=== PATIENT | female | born 1970 | race Caucasian/White ===

== ENCOUNTER → 2017-02-05 | Outpatient (CLI) | payer MEDICARE, OTHER ==
[2017-02-05 07:47] LABS: ALT 30 U/L (9-52); AST 19 U/L (14-36); Alkaline Phosphatase 90 U/L (38-126); Anion Gap 9 mmol/L; Blood Urea Nitrogen 12 mg/dL (7-17); Calcium 9.4 mg/dL (8.4-10.2); Carbon Dioxide 32 mmol/L (22-30); Chloride 100 mmol/L (98-107); Cholesterol 227 mg/dL (<200); Glucose 290 mg/dL (74-99); HDL Cholesterol 35 mg/dL (40-60); Non-African American GFR(MDRD) >60 (>60 ml/min/1.73 sqM); Potassium 4.4 mmol/L (3.5-5.1); Sodium 141 mmol/L (137-145); Total Bilirubin 0.7 mg/dL (0.2-1.3); Total Protein 6.9 g/dL (6.3-8.2); Triglycerides 509 mg/dL (<150)
== END | disposition home or self-care (01) ==
LOC: LABWHC1 06:54
PROVIDERS: ATTEND Internal Medicine Endocrinology, Diabetes & Metabolism
DX: E11.65 Type 2 diabetes mellitus with hyperglycemia (principal)
CPT/HCPCS: 36415; 80053; 80061

== ENCOUNTER → 2017-02-05 | Outpatient (CLI) | payer MEDICARE, OTHER ==
--- NOTE | 2017-02-05 08:02 | MR ---
EXAMINATION TYPE: MR lumbar spine wo con DATE OF EXAM: 02/05/2017 7:57 AM COMPARISON: NONE HISTORY: back pain TECHNIQUE: Multiplanar, multisequence images of the lumbar spine were acquired. L1-L2: Normal disc appearance without desiccation. No herniation, protrusion or disc bulging. No ca nal stenosis is present. Foramina are patent bilaterally. L2-L3: Normal disc appearance without desiccation. No herniation, protrusion or disc bulging. No ca nal stenosis is present. Foramina are patent bilaterally. L3-L4: Normal disc appearance without desiccation. No herniation, protrusion or disc bulging. No ca nal stenosis is present. Foramina are patent bilaterally. L4-L5: Moderate to severe disc desiccation identified. Posterocentral and slightly to the right subli gamentous disc herniation effaces the ventral thecal sac. No evidence for lateral recess stenosis or central stenosis. Neural foramina are patent bilaterally. L5-S1: Normal disc appearance without desiccation. No herniation, protrusion or disc bulging. No ca nal stenosis is present. Foramina are patent bilaterally. Lumbar segments are intact. No paraspinal masses are identified. Conus medullaris has a normal appe arance. IMPRESSION: Degenerative disc disease primarily at L4-5 with mild subligamentous disc herniation is noted.
== END | disposition home or self-care (01) ==
LOC: RADMRIMAIN 07:16
PROVIDERS: ATTEND Family Medicine
DX: M51.26 Other intervertebral disc displacement, lumbar region (principal); M51.36 Other intervertebral disc degeneration, lumbar region
CPT/HCPCS: 72148

== ENCOUNTER → 2017-12-08 | Outpatient (CLI) | payer MEDICARE, OTHER ==
--- NOTE | 2017-12-08 14:21 | CT ---
EXAMINATION TYPE: CT abdomen pelvis wo con DATE OF EXAM: 12/08/2017 COMPARISON: NONE INDICATION: Lt sided abd pain, history of uterine CA DLP: 1279.1 mGycm, Automated exposure control for dose reduction was used. CONTRAST: 0 mL of Omnipaque 300. Study performed with Oral Contrast TECHNIQUE: Axial images were obtained from above the diaphragm to the pubic rami in the axial plane a t 5 mm thick sections. Reconstructed images are reviewed on the computer in the coronal plane. FINDINGS: Limited CT sections are obtained the lung bases. The lung bases are clear. CT ABDOMEN: Liver: There is mild fatty infiltration to the liver. No discrete masses or cysts are evident. Spleen: Normal Pancreas: Normal Adrenal glands: The adrenal glands are normal. Gallbladder: Normal Kidneys: No masses are evident. No hydronephrosis is present. No cysts are present. No renal stone s are identified. Aorta: Minimal vascular calcification is within the aorta. Inferior vena cava: Normal. CT PELVIS: Loops of bowel within the abdomen and pelvis are normal. There are loops of bowel which are incom pletely distended or lack oral contrast limiting their evaluation. Appendix: Not identified Urinary bladder: Decompressed with limited evaluation Genitourinary structures: Uterus and ovaries are not identified. No free fluid is within the pelvis. Osseous structures: No suspicious lytic or sclerotic lesions. IMPRESSIONS: 1. No suspicious acute changes CT abdomen pelvis. 2. No suspicious changes for metastatic disease. 3. Mild fatty infiltration liver
== END | disposition home or self-care (01) ==
LOC: RADCTMAIN 11:21
PROVIDERS: ATTEND Family Medicine
DX: K76.0 Fatty (change of) liver, not elsewhere classified (principal); R10.9 Unspecified abdominal pain; Z85.42 Personal history of malignant neoplasm of other parts of uterus
CPT/HCPCS: 74176

== ENCOUNTER → 2018-09-27 | Outpatient (CLI) | payer MEDICARE, OTHER ==
--- NOTE | 2018-09-27 15:04 | NM ---
EXAMINATION TYPE: NM hepatobiliary w EF DATE OF EXAM: 09/27/2018 COMPARISON: NONE HISTORY: Pain TECHNIQUE: After the intravenous administration of 4.9 mCi Tc 99m Mebrofenin hepatobiliary scintigrap hy is performed. Immediate images post injection. FINDINGS: There is satisfactory initial accumulation of tracer by the liver. The gallbladder is visualized wit hin 10 minutes. The small bowel activity is noted within 25 minutes. At one hour 8 ounces of oral e nsure plus is given to mimic CCK and gallbladder ejection fraction is calculated at 62 %, in the norm al range. Therefore there is no scintigraphic evidence of cystic or common bile duct obstruction to suggest acute cholecystitis or gallbladder dyskinesia. IMPRESSION: Exam is within normal limits.
== END | disposition home or self-care (01) ==
LOC: RADNMMAIN 12:34
PROVIDERS: ATTEND Family Medicine
DX: K80.20 Calculus of gallbladder without cholecystitis without obstruction (principal)
CPT/HCPCS: 78226; A9537

== ENCOUNTER → 2019-01-25 | Outpatient (CLI) | payer MEDICARE, OTHER ==
--- NOTE | 2019-01-25 10:18 | XR ---
EXAMINATION TYPE: XR lumbosacral spine min 4V DATE OF EXAM: 01/25/2019 CLINICAL HISTORY: Low back pain. TECHNIQUE: Frontal, lateral, and oblique images of the lumbar spine are obtained. COMPARISON: CT abdomen and pelvis December 08, 2017. MRI lumbar spine February 05, 2017. FINDINGS: There are 5 lumbar type vertebral bodies redemonstrated. The lumbar spine shows satisfact ory alignment without evidence of acute fracture or dislocation. There is persistent mild to moderate disc space narrowing with mild to moderate anterior spurring L4-L5 level otherwise vertebral body he ights and disk space heights are within normal limits. The oblique images appear within normal limi ts. Mild anterior spurring L3 level is also present. The overlying soft tissue appears unremarkable. IMPRESSION: Degenerative changes L4-L5 level redemonstrated, disc herniation noted at this level [facility].
== END | disposition home or self-care (01) ==
LOC: RADXRMAIN 09:20
PROVIDERS: ATTEND Family Medicine
DX: M51.26 Other intervertebral disc displacement, lumbar region (principal); M47.816 Spondylosis without myelopathy or radiculopathy, lumbar region
CPT/HCPCS: 72110

== ENCOUNTER → 2019-02-03 | Outpatient (CLI) | payer MEDICARE, OTHER ==
--- NOTE | 2019-02-03 12:54 | CT ---
EXAMINATION TYPE: CT brain wo con DATE OF EXAM: 02/03/2019 COMPARISON: None HISTORY: lack of coordination, history of uterine CA CT DLP: 892.1 mGycm Automated exposure control for dose reduction was used. FINDINGS: Ventricular system is midline. There is no evidence of acute hemorrhage or mass effect. There is daron t low-attenuation the periventricular region which is nonspecific. No definite minutes midline shift or mass effect. Calvarium intact. IMPRESSION: NO DEFINITE MASS EFFECT OR MIDLINE SHIFT. THERE IS VERY FAINT MINIMAL PERIVENTRICULAR WHITE MATTER LO W-ATTENUATION WHICH IS NONSPECIFIC BUT MOST LIKELY THE BASIS OF REMOTE MICROVASCULAR ISCHEMIA. CORREL ATE WITH MRI CLINICALLY WARRANTED.
== END | disposition home or self-care (01) ==
LOC: RADCTMAIN 11:23
PROVIDERS: ATTEND Family Medicine
DX: R90.89 Other abnormal findings on diagnostic imaging of central nervous system (principal); R27.9 Unspecified lack of coordination
CPT/HCPCS: 70450

== ENCOUNTER → 2019-02-12 | Outpatient (CLI) | payer MEDICARE, OTHER ==
--- NOTE | 2019-02-12 15:50 | MR ---
EXAMINATION TYPE: MR brain wo/w con DATE OF EXAM: 02/12/2019 COMPARISON: HISTORY: Blurred vision, loss of balance TECHNIQUE: Multiplanar, multisequence images of the brain and brainstem is performed without and with IV contras t, utilizing 10 mL intravenous Gadavist . FINDINGS: Ventricles have normal size. There is no mass effect nor midline shift. There is no sign of intracran ial hemorrhage. There is no evidence of cortical infarct. Corpus callosum appears normal. Sella turci ca appears normal. Cuello-white matter structures have fairly normal signal pattern. There is no eviden ce of cerebral edema. There is mild mucosal thickening in the maxillary sinuses. Contrast images show no pathologic enhancement. There is normal enhancement of the venous sinuses. IMPRESSION: Negative MR scan of the brain. Mucous retention cysts in the maxillary sinuses.
== END ==
LOC: RADMRIMAIN 12:07
PROVIDERS: ATTEND Family Medicine
DX: R26.89 Other abnormalities of gait and mobility (principal); H53.8 Other visual disturbances; E11.65 Type 2 diabetes mellitus with hyperglycemia
CPT/HCPCS: 82565; 70553; 36415; A9585

== ENCOUNTER 2020-03-12 18:06 | Inpatient (IN) | payer MEDICARE, OTHER ==
[2020-03-12] MEDS ORDERED: AMPICILLIN-SULBACTAM 3 GM in SODIUM CHLORIDE 0.9% 100 ML IVPB STA (19:22)
--- NOTE | 2020-03-12 19:32 | ED ---
Skin/Abscess/FB HPI - General Chief complaint: Skin/Abscess/Foreign Body Stated complaint: Sent by pcp Time Seen by Provider: 03/12/20 18:46 Source: patient, family Mode of arrival: ambulatory Limitations: no limitations - History of Present Illness Initial comments: 50-year-old female patient presents to the emergency department today for evaluation of a wound to the left heel. Patient states a couple of weeks ago she was peeling some dried skin from her heel when she created a wound. States that the wound has deepened, a foul odor and drainage devloped. Patient has been on Cipro for the last two weeks without improvement. States her physician did a culture and it was negative for MRSA, but was positive for staph. Patient denies any significant pain. Denies fever or chills. She does report some neuropathy in the feet. Denies history of similar wound. Patient denies any recent rash, cough, shortness of breath, chest pain, abdominal pain, nausea, vomiting, diarrhea, constipation, back pain, numbness, tingling, dizziness, weakness, hematuria, dysuria, urinary urgency, urinary frequency, headache, visual changes, or any other complaints. - Related Data Home Medications Medication Instructions Recorded Confirmed ALPRAZolam [Xanax] 2 mg PO TID PRN 01/24/16 02/21/16 Betamethasone Dipropionate 1 applic TOPICAL BID PRN 01/24/16 02/21/16 [Diprolene 0.05% Lotion] Insulin Aspart [NovoLOG Flexpen] 0 units SQ AC-TID 01/24/16 02/21/16 Insulin Aspart [NovoLOG Flexpen] 30 units SQ AC-TID 01/24/16 02/21/16 Previous Rx's Medication Instructions Recorded HYDROcodone/APAP 7.5-325MG [[place] 1 each PO Q4H PRN #60 tab 02/21/16 7.5-325] Insulin Glargine [Lantus] 60 unit SQ HS #1 vial 02/22/16 Clindamycin HCl 300 mg PO Q6HR #40 cap 05/25/19 Allergies Allergy/AdvReac Type Severity Reaction Status Date / Time acetaminophen [From Vicodin] Allergy Nausea & Verified 05/25/19 15:18 Vomiting hydrocodone bitartrate Allergy Nausea & Verified 05/25/19 15:18 [From Vicodin] Vomiting sulfamethoxazole Allergy Rash/Hives Verified 03/12/20 18:38 [From Bactrim] trimethoprim [From Bactrim] Allergy Rash/Hives Verified 03/12/20 18:38 Review of Systems ROS Statement: Those systems with pertinent positive or pertinent negative responses have been documented in the HPI. ROS Other: All systems not noted in ROS Statement are negative. Past Medical History Past Medical History: Cancer, Diabetes Mellitus, GERD/Reflux, GI Bleed, Hyperlipidemia Additional Past Medical History / Comment(s): Uterine cancer- "they tell me I still have a little cancer in my left lymph node"; "spots of MRSA" "will come anywhere...dr prescribes bactrim, will make sure it drains and if not he will drain it but it normally drains by itself"-last time for MRSA was fall 2014 per pt, lower GI bleed, IDDM, diabetic peripheral neuropathy bilateral feet History of Any Multi-Drug Resistant Organisms: MRSA Date of last positivie culture/infection: fall 2014 MDRO Source:: "spots of MRSA" Past Surgical History: Appendectomy, Hysterectomy, Orthopedic Surgery Additional Past Surgical History / Comment(s): 02/21/16 Laparoscopic Olivia Fundoplasty, 01/2016 EGD with bx/colonoscopy, 2008 left side MRSA drained & packed, left elbow sx Past Anesthesia/Blood Transfusion Reactions: No Reported Reaction, Motion Sickness Past Psychological History: Anxiety Smoking Status: Never smoker Past Alcohol Use History: None Reported Past Drug Use History: None Reported - Past Family History Mother Family Medical History: Cancer, Diabetes Mellitus (Mother 70-year-old has a history of diabetes), Hypertension Additional Family Medical History / Comment(s): [place]:skin Father Family Medical History: Cancer, Hypertension, Myocardial Infarction ([place]) (Father at age of 51 from the thoracic aortic aneurysm.) Additional Family Medical History / Comment(s): "aneurysm on his heart"; CA: skin Daughter(s) Family Medical History: No Reported History (2 daughters no major medical problems) Son(s) Family Medical History: No Reported History (2 sons no major medical problems) General Exam Limitations: no limitations General appearance: alert, in no apparent distress, other (This is a well- developed, well-nourished adult female patient in no acute distress. Vital signs upon presentation are temperature 98.1F, pulse 80, respirations 18, blood pressure 172/85, pulse ox 97% on room air.) Eye exam: Present: normal appearance, PERRL, EOMI. Absent: scleral icterus, conjunctival injection, periorbital swelling ENT exam: Present: normal exam, normal oropharynx, mucous membranes moist Respiratory exam: Present: normal lung sounds bilaterally. Absent: respiratory distress, wheezes, rales, rhonchi, stridor Cardiovascular Exam: Present: regular rate, normal rhythm, normal heart sounds. Absent: systolic murmur, diastolic murmur, rubs, gallop, clicks GI/Abdominal exam: Present: soft, normal bowel sounds. Absent: distended, tenderness, guarding, rebound, rigid Extremities exam: Present: full ROM, normal capillary refill, other (Left heel wound, foul odor noted, yellow drainage). Absent: normal inspection, tenderness, pedal edema, joint swelling, calf tenderness Neurological exam: Present: alert, oriented X3, CN II-XII intact Psychiatric exam: Present: normal affect, normal mood Skin exam: Present: warm, dry, intact, normal color. Absent: rash Course Vital Signs 03/12/20 03/12/20 18:34 20:16 Temperature 98.1 F Pulse Rate 80 70 Respiratory 18 18 Rate Blood Pressure 172/85 194/86 O2 Sat by Pulse 97 98 Oximetry Medical Decision Making - Medical Decision Making 50-year-old female patient with past history significant for type 2 diabetes pre sents to the emergency department today for evaluation of a wound to the left heel. Patient has been on cipro for the last two weeks without much improvement. There is yellow drainage and a foul odor from the wound. - Lab Data Result diagrams: 03/12/20 19:29 03/12/20 19:29 Lab Results 03/12/20 03/12/20 Range/Units 19:29 19:29 WBC 5.4 (3.8-10.6) k/uL RBC 5.00 (3.80-5.40) m/uL Hgb 14.4 (11.4-16.0) gm/dL Hct 44.0 (34.0-46.0) % MCV 88.0 (80.0-100.0) fL MCH 28.9 (25.0-35.0) pg MCHC 32.8 (31.0-37.0) g/dL RDW 12.7 (11.5-15.5) % Plt Count 254 (150-450) k/uL Neutrophils % 63 % Lymphocytes % 29 % Monocytes % 4 % Eosinophils % 3 % Basophils % 1 % Neutrophils # 3.4 (1.3-7.7) k/uL Lymphocytes # 1.6 (1.0-4.8) k/uL Monocytes # 0.2 (0-1.0) k/uL Eosinophils # 0.1 (0-0.7) k/uL Basophils # 0.0 (0-0.2) k/uL Sodium 134 L (137-145) mmol/L Potassium 4.3 (3.5-5.1) mmol/L Chloride 96 L (98-107) mmol/L Carbon Dioxide 29 (22-30) mmol/L Anion Gap 9 mmol/L BUN 17 (7-17) mg/dL Creatinine 0.94 (0.52-1.04) mg/dL Est GFR (CKD-EPI)AfAm 81 (>60 ml/min/1.73 sqM) Est GFR (CKD-EPI)NonAf 71 (>60 ml/min/1.73 sqM) Glucose 492 H (74-99) mg/dL Calcium 9.1 (8.4-10.2) mg/dL Total Bilirubin 0.3 (0.2-1.3) mg/dL AST 20 (14-36) U/L ALT 15 (4-34) U/L Alkaline Phosphatase 109 (38-126) U/L Total Protein 7.1 (6.3-8.2) g/dL Albumin 3.8 (3.5-5.0) g/dL - Radiology Data Radiology results: report reviewed, image reviewed X-ray of the left foot is obtained. Report is reviewed in its entirety. Impr ession by Dr. Younger shows fracture at the base of the proximal fifth phalanx. Soft tissue edema with no destructive osseous changes involving the heel suggest osteomyelitis. Soft tissue ulceration is suspected along the plantar surface adjacent to the calcaneus. Correlate for cellulitis. Disposition Clinical Impression: Ulcer of left heel, Hyperglycemia Disposition: ADMITTED IP TO THIS [facility] Condition: Serious Referrals: Tevin Mora DO [Primary Care Provider] - 1-2 days Decision to Admit Reason: Admit from EC Decision Date: 03/12/20 Decision Time: 20:30
[2020-03-12 19:43] LABS: Basophils % (A) 1 %; Eosinophils # (A) 0.1 k/uL (0-0.7); Eosinophils % (A) 3 %; HGB 14.4 gm/dL (11.4-16.0); Lymphocytes # (A) 1.6 k/uL (1.0-4.8); Lymphocytes % (A) 29 %; MCH 28.9 pg (25.0-35.0); MCHC 32.8 g/dL (31.0-37.0); Mean Platelet Volume 6.6; Monocytes # (A) 0.2 k/uL (0-1.0); Monocytes % (A) 4 %; Neutrophils # (A) 3.4 k/uL (1.3-7.7); Neutrophils % (A) 63 %; Platelet Count 254 k/uL (150-450); RDW 12.7 % (11.5-15.5); WBC 5.4 k/uL (3.8-10.6)
--- NOTE | 2020-03-12 19:54 | XR ---
EXAMINATION TYPE: XR foot complete LT DATE OF EXAM: 03/12/2020 COMPARISON: NONE HISTORY: Pain TECHNIQUE: Three views are submitted. FINDINGS: There is a fracture at the base of the proximal phalanx fifth digit. Arthropathy of the MTP joints no magdiel. Calcaneal spur noted. IMPRESSION: 1. Fracture base proximal phalanx fifth digit. 2. Soft tissue edema with no destructive osseous changes involving the heel to suggest osteomyelitis. Soft tissue ulceration is suspected along the plantar surface adjacent to the calcaneus. Correlate f or cellulitis.
[2020-03-12 19:55] LABS: Albumin 3.8 g/dL (3.5-5.0); Calcium 9.1 mg/dL (8.4-10.2); Potassium 4.3 mmol/L (3.5-5.1); Total Bilirubin 0.3 mg/dL (0.2-1.3); Total Protein 7.1 g/dL (6.3-8.2)
[2020-03-12] MEDS ORDERED: SODIUM CHLORIDE 0.9% 1,000 ML IV ONE (20:20)
[2020-03-12] MEDS ORDERED: SODIUM CHLORIDE 0.9% 500 ML 500 ML IV ONE (20:20)
[2020-03-12] MEDS ORDERED: INSULIN ASPART (NovoLOG) 100 UNIT/ML VIAL SQ STA ×2 (20:22→20:26)
[2020-03-12] MEDS ORDERED: NALOXONE 0.4 MG/ML 1 ML VIAL IV PRN (20:23)
[2020-03-12] MEDS ORDERED: hydrALAZINE HCL 20 MG/ML 1 ML VIAL IVP STA (21:13)
[2020-03-12 22:37] LABS: Glucose,Whole Blood 284 mg/dL (75-99)
[2020-03-12] MEDS: INSULIN ASPART (NovoLOG) 100 UNIT/ML VIAL SQ SCH (23:04)
[2020-03-12] MEDS: glipiZIDE 10 MG TAB PO SCH (23:05)
[2020-03-12] MEDS: INSULIN DETEMIR (LEVEMIR) 100 UNIT/ML SYR SQ SCH (23:06)
[2020-03-12] MEDS: HEPARIN SODIUM,PORCINE 5,000 UNIT/ML 1 ML VIAL SQ SCH (23:06)
[2020-03-13] MEDS: AMPICILLIN-SULBACTAM 3 GM in SODIUM CHLORIDE 0.9% 100 ML IVPB SCH ×5 (01:27→23:19)
[2020-03-13 07:34] LABS: Glucose,Whole Blood 269 mg/dL (75-99)
[2020-03-13] MEDS: INSULIN ASPART (NovoLOG) 100 UNIT/ML VIAL SQ SCH ×6 (08:45→21:36)
[2020-03-13] MEDS: LISINOPRIL 10 MG TAB PO SCH (08:45)
[2020-03-13] MEDS: glipiZIDE 10 MG TAB PO SCH ×3 (08:45→21:37)
[2020-03-13] MEDS: HEPARIN SODIUM,PORCINE 5,000 UNIT/ML 1 ML VIAL SQ SCH ×2 (08:45→21:36)
[2020-03-13] MEDS: FAMOTIDINE 20 MG TAB PO SCH (08:45)
[2020-03-13 11:51] VITALS: BMI 41.5
--- NOTE | 2020-03-13 12:06 | P.CONS ---
History of Present Illness - Reason for Consult Consult date: 03/13/20 Wound care - History of Present Illness This is a 50-year-old pleasant female being seen on [address] by the wound care center. Patient is being seen for diabetic foot ulcer. Patient states that the ulceration started approximately one month ago. She was seen by her primary care physician and treated with Cipro for a positive staph infection. Patient continues to have increased in size and depth purulent drainage and foul odor from the site. Patient is diabetic she states that her blood sugars have been under control. She does have peripheral diabetic neuropathy. Patient states the area started out of just peeling skin and a blister. Patient's past medical history significant for uterine cancer, diabetes mellitus type 2, diabetic peripheral neuropathy bilateral feet, acid reflux, GI bleed, hyperlipid emia. Patient did have MRSA in the past and abdominal wound. Review of Systems Review Of Systems: Constitutional: No fever, no chills, no night sweats. No weight change. No weakness, fatigue or lethargy. No daytime sleepiness. Integumentary:reports wounds, no lesions. No rash or pruritus. No unusual bruising. No change in hair or nails. Neurological: Positive neuropathy, positive numbness and tingling toe bilateral feet. Past Medical History Past Medical History: Cancer, Diabetes Mellitus, GERD/Reflux, GI Bleed, Hyperlipidemia Additional Past Medical History / Comment(s): Uterine cancer- "they tell me I still have a little cancer in my left lymph node"; "spots of MRSA" "will come anywhere...dr prescribes bactrim, will make sure it drains and if not he will drain it but it normally drains by itself"-last time for MRSA was fall 2014 per pt, lower GI bleed, IDDM, diabetic peripheral neuropathy bilateral feet History of Any Multi-Drug Resistant Organisms: MRSA Year Discovered:: fall 2014 MDRO Source:: "spots of MRSA" Past Surgical History: Appendectomy, Hysterectomy, Orthopedic Surgery Additional Past Surgical History / Comment(s): 02/21/16 Laparoscopic Olivia Fundoplasty, 01/2016 EGD with bx/colonoscopy, 2008 left side MRSA drained & packed, left elbow sx Past Anesthesia/Blood Transfusion Reactions: No Reported Reaction, Motion Sickness Past Psychological History: Anxiety Additional Psychological History / Comment(s): Pt resides with her 2 adult children. She uses a cane at times. She drives. Smoking Status: Never smoker Past Alcohol Use History: None Reported Past Drug Use History: None Reported - Past Family History Mother Family Medical History: Cancer, Diabetes Mellitus, Hypertension Additional Family Medical History / Comment(s): CA:skin Father Family Medical History: Cancer, Hypertension, Myocardial Infarction ([place]) Additional Family Medical History / Comment(s): "aneurysm on his heart"; CA: skin Daughter(s) Family Medical History: No Reported History Son(s) Family Medical History: No Reported History Medications and Allergies Home Medications Medication Instructions Recorded Confirmed Type Insulin Glargine [Lantus] 60 unit SQ HS #1 vial 02/22/16 03/12/20 Rx glipiZIDE [Glucotrol] 10 mg PO TID 03/12/20 03/12/20 History Allergies Allergy/AdvReac Type Severity Reaction Status Date / Time hydrocodone bitartrate Allergy Nausea & Verified 03/12/20 20:49 [From Vicodin] Vomiting sulfamethoxazole Allergy Rash/Hives Verified 03/12/20 20:49 [From Bactrim] trimethoprim [From Bactrim] Allergy Rash/Hives Verified 03/12/20 20:49 Physical Exam Vitals: Vital Signs Temp Pulse Pulse Resp BP BP Pulse Ox 03/13/20 06:00 97.4 F L 73 18 187/91 97 03/12/20 21:35 98.4 F 72 18 172/90 98 03/12/20 21:00 97.9 F 88 18 157/100 96 03/12/20 20:16 70 18 194/86 98 03/12/20 18:34 98.1 F 80 18 172/85 97 Intake and Output 03/12/20 03/13/20 03/13/20 22:59 06:59 14:59 Intake Total 300 450 Balance 300 450 Intake: Oral 300 450 Other: # Voids 0 2 Weight 113.398 kg 113.398 kg Physical exam: General Appearance: Alert, cooperative, no distress, appears stated age. Skin: Left calcaneus ulceration with muscle involvement without necrosis approximately 1.5 x 1 x 2 cm unable to palpate bone at this time however suspicious that there is bone involvement. Significant amount of necrotic tissue present Slough fibrin and exudate. Odiferous. Wound edges are attached however rolled callus noted to the wound. Significant amount of purulent drainage all other Skin color, texture, tugor normal, no rashes or lesions. Neurologic: Alert oriented x3, decreased sensation to bilateral feet Results CBC & Chem 7: 03/12/20 19:29 03/12/20 19:29 Labs: Abnormal Lab Results - Last 24 Hours (Table) 03/12/20 03/12/20 03/13/20 Range/Units 19:29 22:35 07:31 Sodium 134 L (137-145) mmol/L Chloride 96 L (98-107) mmol/L Glucose 492 H (74-99) mg/dL POC Glucose (mg/dL) 284 H 269 H (75-99) mg/dL Microbiology - Last 24 Hours (Table) 03/12/20 20:23 Gram Stain - Preliminary Foot - Left Wound Culture - Preliminary Assessment and Plan (1) Diabetic ulcer of left foot with muscle involvement without evidence of necrosis Current Visit: Yes Status: Acute Code(s): E11.621 - TYPE 2 DIABETES MELLITUS WITH FOOT ULCER; L97.525 - NON-PRS [facility] OTH PRT L FOOT WITH MSL INVL W/O EVD OF NECR SNOMED Code(s): 393134375 Plan: Patient is set up for bone scan to rule out osteomyelitis. Patient has a diabetic foot ulcer Henderson grade 3. Suspect possible bone involvement unable to palpate at this time. Utilize absorptive silver, saline moistened gauze, dry gauze and rolled gauze and secure with paper tape. Change Thursday. Patient will benefit from wound debridement which can be done in the outpatient setting in the wound care clinic. Patient may also be a candidate for hyperbaric therapy. Discussed with patient follow-up in the wound care center which patient is agreeable at this time. Nonweightbearing to left calcaneus. Thank you kindly for the consultation. Any questions please contact the wound care center. DNP note has been reviewed and discussed with Dr. Estrada and the impression and plan of care has been directed as dictated.
[2020-03-13 12:12] LABS: Glucose,Whole Blood 278 mg/dL (75-99)
--- NOTE | 2020-03-13 12:37 | P.HPIM ---
History of Present Illness H&P Date: 03/13/20 Chief Complaint: Left heel wound This is a 50-year-old female patient of Dr. Mora with past medical history of diabetes mellitus type 2, insulin requiring diagnosed in 2007, diabetic neuropathy, hyperlipidemia, gastroesophageal reflux disease, history of uterine cancer status post hysterectomy, chemotherapy and radiation therapy, hiatal hernia status post recent fundoplication in 2016. Patient states she has had a wound to her left heel for a couple months. She states it started as a dry area and she peeled the skin off. She has been seeing Dr. Mora for this and has been treated with Cipro. Patient was concerned that the wound has worsened with foul order and drainage. Patient came into [facility] emergency center for evaluation. Patient was found to be afebrile, heart rate 80, blood pressure 172/85, pulse ox 97% on room air, CBC unremarkable, sodium 134, potassium 4.3, chloride 96, CO2 29, BUN 17 and creatinine 0.94, blood sugar 492. Liver function tests were within normal limits. X-ray of the left foot revealed fracture base proximal phalanx fifth digit. Soft tissue edema with no destructive osseous changes involving the heel to suggest osteomyelitis. Soft tissue ulceration suspected along the plantar surface adjacent calcaneus. Correlate for cellulitis. Patient has been admitted to the [facility] floor and consult in place with infectious disease and wound care team. Patient was started on antibiotics in form of Unasyn and bone scans been ordered. Outpatient wound culture from February 20 is positive for MSSA and strep agalactiae group B. Review of Systems Constitutional: Denies anorexia, Denies chills, Denies fatigue, Denies fever, Denies lethargy, Denies malaise, Denies poor appetite, Denies weakness, Denies weight loss Eyes: denies blurred vision, denies pain, denies loss of vision Ears, nose, mouth and throat: Denies dysphagia, Denies headache, Denies nasal congestion, Denies nasal discharge, Denies sore throat, Denies vertigo Cardiovascular: Denies chest pain, Denies decreased exercise tolerance, Denies dyspnea on exertion, Denies leg edema, Denies lightheadedness, Denies shortness of breath, Denies syncope Respiratory: Denies cough, Denies cough with sputum, Denies dyspnea, Denies excessive sputum, Denies hemoptysis, Denies home oxygen, Denies respiratory infections, Denies sleep apnea, Denies wheezing Gastrointestinal: Denies abdominal pain, Denies constipation, Denies diarrhea, Denies loss of appetite, Denies nausea, Denies vomiting Genitourinary: Denies dysuria, Denies hematuria, Denies urgency, Denies urinary frequency Musculoskeletal: Denies frequent falls, Denies gait dysfunction, Denies muscle weakness, Denies myalgias Integumentary: Reports wounds, Denies pruritus, Denies rash Neurological: Denies change in mentation, Denies change in speech, Denies confusion, Denies numbness, Denies seizures, Denies weakness Psychiatric: Denies anxiety, Denies depression Endocrine: Denies fatigue, Denies weight change Past Medical History Past Medical History: Cancer, Diabetes Mellitus, GERD/Reflux, GI Bleed, Hyperli pidemia Additional Past Medical History / Comment(s): Uterine cancer- "they tell me I still have a little cancer in my left lymph node"; "spots of MRSA" "will come anywhere...dr prescribes bactrim, will make sure it drains and if not he will drain it but it normally drains by itself"-last time for MRSA was fall 2014 per pt, lower GI bleed, IDDM, diabetic peripheral neuropathy bilateral feet History of Any Multi-Drug Resistant Organisms: MRSA Date of last positivie culture/infection: fall 2014 MDRO Source:: "spots of MRSA" Past Surgical History: Appendectomy, Hysterectomy, Orthopedic Surgery Additional Past Surgical History / Comment(s): 02/21/16 Laparoscopic Olivia Fundoplasty, 01/2016 EGD with bx/colonoscopy, 2008 left side MRSA drained & packed, left elbow sx Past Anesthesia/Blood Transfusion Reactions: No Reported Reaction, Motion Sickness Past Psychological History: Anxiety Additional Psychological History / Comment(s): Pt resides with her 2 adult children. She uses a cane at times. She drives. Smoking Status: Never smoker Past Alcohol Use History: None Reported Additional Past Alcohol Use History / Comment(s): Patient is a lifelong nonsmoker. She is currently on disability area and her has been in half-way for the past 21 years. Past Drug Use History: None Reported - Past Family History Mother Family Medical History: Cancer, Diabetes Mellitus, Hypertension Additional Family Medical History / Comment(s): Mother is living at age 75 with history of diabetes, hypertension and skin cancer. Father Family Medical History: Cancer, Hypertension, Myocardial Infarction ([place]) Additional Family Medical History / Comment(s): Father at age 51 from myocardial infarction "aneurysm on his heart"; CA: skin Daughter(s) Family Medical History: No Reported History Additional Family Medical History / Comment(s): Patient has 2 daughters with no major medical problems. Son(s) Family Medical History: No Reported History Additional Family Medical History / Comment(s): Patient has 2 sons with no major medical problems. Patient is an only child. Medications and Allergies Home Medications Medication Instructions Recorded Confirmed Type Insulin Glargine [Lantus] 60 unit SQ HS #1 vial 02/22/16 03/12/20 Rx glipiZIDE [Glucotrol] 10 mg PO TID 03/12/20 03/12/20 History Allergies Allergy/AdvReac Type Severity Reaction Status Date / Time hydrocodone bitartrate Allergy Nausea & Verified 03/12/20 20:49 [From Vicodin] Vomiting sulfamethoxazole Allergy Rash/Hives Verified 03/12/20 20:49 [From Bactrim] trimethoprim [From Bactrim] Allergy Rash/Hives Verified 03/12/20 20:49 Physical Exam Vitals: Vital Signs Temp Pulse Pulse Resp BP BP Pulse Ox 03/13/20 06:00 97.4 F L 73 18 187/91 97 03/12/20 21:35 98.4 F 72 18 172/90 98 03/12/20 21:00 97.9 F 88 18 157/100 96 03/12/20 20:16 70 18 194/86 98 03/12/20 18:34 98.1 F 80 18 172/85 97 Intake and Output 03/12/20 03/13/20 03/13/20 22:59 06:59 14:59 Intake Total 300 450 Balance 300 450 Intake: Oral 300 450 Other: # Voids 0 2 Weight 113.398 kg 113.398 kg Gen: This is a 50-year-old morbidly obese female. Patient is resting in bed appears to be comfortable and in no acute distress. HEENT: Head is atraumatic, normocephalic. Pupils equal, round. Sclerae is anicteric. NECK: Supple. No JVD. No lymphadenopathy. No thyromegaly. LUNGS: Clear to auscultation. No wheezes or rhonchi. No intercostal retractions. HEART: Regular rate and rhythm. No murmur. ABDOMEN: Soft. Bowel sounds are present. No masses. No tenderness. EXTREMITIES: No pedal edema. No calf tenderness. Dorsalis pedis +2 bilaterally. Patient has left heel ulceration with necrotic tissue. Bowel order with purulent drainage. NEUROLOGICAL: Patient is awake, alert and oriented x3. Cranial nerves 2 through 12 are grossly intact. Results CBC & Chem 7: 03/12/20 19:29 03/12/20 19:29 Labs: Abnormal Lab Results - Last 24 Hours (Table) 03/12/20 03/12/20 03/13/20 Range/Units 19:29 22:35 07:31 Sodium 134 L (137-145) mmol/L Chloride 96 L (98-107) mmol/L Glucose 492 H (74-99) mg/dL POC Glucose (mg/dL) 284 H 269 H (75-99) mg/dL Microbiology - Last 24 Hours (Table) 03/12/20 20:23 Gram Stain - Preliminary Foot - Left Wound Culture - Preliminary Thrombosis Risk Factor Assmnt - DVT/VTE Prophylaxis DVT/VTE Prophylaxis: Pharmacologic Prophylaxis ordered - Choose All That Apply Any of the Below Risk Factors Present?: Yes Each Factor Represents 1 point: Age 41-60 years, Obesity (BMI >25) Other Risk Factors: No Thrombosis Risk Factor Assessment Total Risk Factor Score: 2 Thrombosis Risk Factor Assessment Level: Low Risk Assessment and Plan Plan: 1. Left heel diabetic ulcer. Wound care consult appreciated. Continue Unasyn. Three-phase bone scan ordered to rule out osteomyelitis. Consult with infectious disease. Blood cultures status received. Wound culture in progress. Previous wound culture positive for MSSA and strep agalactia group B. 2. Diabetes mellitus type 2. Continue Levemir 60 units at bedtime, glipizide 10 mg 3 times daily, NovoLog added at 3 units with meals and NovoLog scale before meals and at bedtime. Hemoglobin A1c ordered. 3. Uncontrolled hypertension. Patient started on lisinopril 10 mg daily. 4. Diabetes mellitus type 2 with diabetic neuropathy. Patient requires tight glucose control. 5. GI prophylaxis. Pepcid 20 mg daily. 6. DVT prophylaxis. Heparin 5000 units subcu twice daily. Patient will be admitted to the hospital for a minimum of 2 night stay. Discharge plan: home Impression and plan of care have been directed as dictated by the signing physician. Eva Ortiz nurse practitioner acting as scribe for signing physician.
--- NOTE | 2020-03-13 14:18 | NM ---
EXAMINATION TYPE: NM bone 3 phase DATE OF EXAM: 03/13/2020 COMPARISON: Radiograph 03/12/2020 HISTORY: 50-year-old female with left heel pain for one month, open wound from cutting callus. Technique: Triple phase bone scintigraphy was performed following the injection of 24.1 mCi Tc 99m MD P. Immediate images and 3 hours post injection images acquired. Images centered on the distal aspect of the bilateral lower extremities. FINDINGS: Flow images show intense focal uptake medial left hindfoot. This is redemonstrated on the pool images. Delayed images, however, showed degenerative tracer activity throughout the bilateral feet. The most intense delayed activity is located along the lateral right mid foot. IMPRESSION: Intense flow and pool activity along the medial left heel suggesting soft tissue injury/infection. No corresponding delayed activity here to clearly indicate osteomyelitis at this time.
[2020-03-13 15:45] LABS: Hemoglobin A1C 12.8 % (4.0-6.0)
[2020-03-13 17:07] LABS: Glucose,Whole Blood 209 mg/dL (75-99)
[2020-03-13 21:10] LABS: Glucose,Whole Blood 206 mg/dL (75-99)
[2020-03-13] MEDS: INSULIN DETEMIR (LEVEMIR) 100 UNIT/ML SYR SQ SCH (21:37)
--- NOTE | 2020-03-13 23:44 | CONS ---
CONSULTATION DATE OF SERVICE: 03/13/2020 REASON FOR CONSULTATION: Infected left heel wound. HISTORY OF PRESENT ILLNESS: The patient is a 50-year-old female with a past medical history significant for insulin-dependent diabetes mellitus. The patient apparently had a dry area to the left heel area that she tried to peel off about a month ago. Subsequently the patient has developed a wound in the left heel area that has not been healing well over the last one month. The patient has been treated with 2 different courses of oral Cipro. However, the patient did not have any improvement. The patient did have a telehealth visit with her primary care physician yesterday, who after looking at her left heel advised the patient that she needed to go to the hospital, with concern for possible cellulitis of the left heel. The patient does have diabetic neuropathy. She did have some sensation and mentioned she did have high tolerance to the pain and denies significant pain to the left heel area, at times dull aching and at times worse when she walks on it. The patient denies having any purulent drainage from her left heel area. There is minimal swelling but no significant redness. The patient denies having any chest pain, shortness of breath or cough. No nausea, no vomiting. No abdominal pain or any diarrhea. With these symptoms, the patient presented to hospital. On arrival to the ER, the patient was afebrile. The patient did have a normal white count, hemoglobin A1c of 12.8. The patient did have a local wound culture which is currently pending. The patient did have x-rays of the left foot which show soft tissue edema with no destructive osseous changes involving the heel to suggest osteomyelitis. A bone scan has been done as well which was suggestive of soft tissue infection, but no evidence of osteomyelitis either. The patient has been started on Unasyn 3 grams q.6 hours. Local wound culture has been obtained. Infectious Disease was consulted for further recommendations regarding antibiotic therapy. REVIEW OF SYSTEMS: Positive points have been mentioned in the HPI. Rest of the systems are negative. PAST MEDICAL HISTORY: Diabetes mellitus, insulin-dependent, uterine cancer, gastroesophageal reflux disease, GI bleed, hyperlipidemia, and previous history of MRSA infection. PAST SURGICAL HISTORY: Appendectomy, hysterectomy, laparoscopic Olivia fundoplasty, left elbow surgery. SOCIAL HISTORY: No smoking, drinking or drug use. FAMILY HISTORY: Mother with history of diabetes, skin cancer, hypertension. Father with history of hypertension and [place]. ALLERGIES: BACTRIM AND HYDROCODONE. CURRENT MEDICATIONS: The patient is currently on Unasyn 3 grams q.6 hours. She is on Pepcid, Glucotrol, heparin, NovoLog, Levemir, Zestril, Narcan. PHYSICAL EXAMINATION: Blood pressure 155/90 with a pulse of 67, temperature 98.1. She is 94% on room air. General description is a middle-aged female up in the chair in no distress. No tachypnea or accessory muscle of respiration use. HEENT examination shows no pallor or scleral icterus. Oral mucosa membrane is dry. No pharyngeal erythema or thrush. NECK: Trachea is central. No thyromegaly. LUNGS: Unlabored breathing. Clear to auscultation anteriorly. No wheeze or crackle. HEART: S1, S2. Regular rate and rhythm. ABDOMEN: Soft. No tenderness. No guarding or rigidity. EXTREMITIES: No edema of the feet. SKIN EXAMINATION: No rash or mass palpable. EXAMINATION OF LEFT HEEL: The patient did have a superficial ulceration with minimal surrounding callus. No significant slough tissue. Some swelling. No redness or foul- smelling drainage. Neurologically the patient is awake, alert, oriented x3. Mood and affect normal. LABS: Hemoglobin is 14.4, white count 5.4. BUN of 17, creatinine 0.94. Electrolytes have been normal. Liver enzymes are normal. Wound culture obtained and currently pending. DIAGNOSTIC IMPRESSION AND PLAN: Patient with a left diabetic foot infection to the heel area in this patient who apparently did shave off dry skin to that area with resulting formation of this wound. Outpatient culture positive for Staph per the patient that has failed to respond to oral Cipro therapy. PLAN: 1. We will keep the patient on Unasyn 3 grams q.6 hours. 2. Dry Aquacel packing of the wound daily. 3. We will follow on clinical condition as well as culture and adjust antibiotic further if needed. Thank you for this consultation. Will follow this patient along with you. MMODL / IJN: [id number] /
[2020-03-14] MEDS ORDERED: INSULIN DETEMIR (LEVEMIR) 100 UNIT/ML SYR SQ SCH (03:52)
[2020-03-14] MEDS: AMPICILLIN-SULBACTAM 3 GM in SODIUM CHLORIDE 0.9% 100 ML IVPB SCH ×4 (05:22→23:39)
[2020-03-14 06:52] LABS: Glucose,Whole Blood 229 mg/dL (75-99)
[2020-03-14] MEDS: glipiZIDE 10 MG TAB PO SCH ×3 (07:17→20:38)
[2020-03-14] MEDS: FAMOTIDINE 20 MG TAB PO SCH (07:17)
[2020-03-14] MEDS: LISINOPRIL 10 MG TAB PO SCH ×2 (07:17→20:37)
[2020-03-14] MEDS: HEPARIN SODIUM,PORCINE 5,000 UNIT/ML 1 ML VIAL SQ SCH ×2 (07:17→20:37)
[2020-03-14] MEDS: INSULIN ASPART (NovoLOG) 100 UNIT/ML VIAL SQ SCH ×8 (07:17→20:37)
--- NOTE | 2020-03-14 11:15 | P.PN ---
Subjective Progress Note Date: 03/14/20 This is a 50-year-old female patient of Dr. Mora with past medical history of diabetes mellitus type 2, insulin requiring diagnosed in 2007, diabetic neuropathy, hyperlipidemia, gastroesophageal reflux disease, history of uterine cancer status post hysterectomy, chemotherapy and radiation therapy, hiatal hernia status post recent fundoplication in 2016. Patient states she has had a wound to her left heel for a couple months. She states it started as a dry area and she peeled the skin off. She has been seeing Dr. Mora for this and has been treated with Cipro. Patient was concerned that the wound has worsened with foul order and drainage. Patient came into [facility] emergency center for evaluation. Patient was found to be afebrile, heart rate 80, blood pressure 172/85, pulse ox 97% on room air, CBC unremarkable, sodium 134, potassium 4.3, chloride 96, CO2 29, BUN 17 and creatinine 0.94, blood sugar 492. Liver function tests were within normal limits. X-ray of the left foot revealed fracture base proximal phalanx fifth digit. Soft tissue edema with no destructive osseous changes involving the heel to suggest osteomyelitis. Soft tissue ulceration suspected along the plantar surface adjacent calcaneus. Correlate for cellulitis. Patient has been admitted to the [facility] floor and consult in place with infectious disease and wound care team. Patient was started on antibiotics in form of Unasyn and bone scans been ordered. Outpatient wound culture from February 20 is positive for MSSA and strep agalactiae group B. 03/14: Patient has been seen by Dr. Basurto with recommendations to continue Unasyn. Patient has been seen by Wound Care Team with recommendations for absorptive silver, saline moistened gauze, dry gauze and rolled gauze and secure with paper tape. Change Thursday. Patient will benefit from wound debridement which can be done in the outpatient setting in the wound care clinic. Bone scan reveals intense flow in portal activity along the medial left heel suggestive soft tissue injury infection. No corresponding delayed activity to clearly indicate osteomyelitis. Patient has been afebrile, heart rate 73, blood pressure 137/77, pulse ox 96% on room air. A1C 12.8 and CBG running in the 200s. Scheduled NovoLog increased to 6 units with meals. manufacturing test technician will be added. Patient does have a glucometer at home. Blood culture shows no growth at 24 hours and wound culture in progress. Objective - Vital Signs Vital signs: Vital Signs Temp 98.4 F 03/14/20 03:15 Pulse 73 03/14/20 03:15 Resp 16 03/13/20 15:55 BP 137/77 03/14/20 03:15 Pulse Ox 96 03/14/20 03:15 Intake & Output 03/13/20 03/14/20 03/14/20 18:59 06:59 18:59 Intake Total 100 960 Balance 100 960 Weight 113.398 kg Intake: Intake, IV Titration 100 Amount Ampicillin-Sulbactam 3 gm 100 In Sodium Chloride 0.9% 100 ml @ 200 mls/hr IVPB Q6HR [facility] Rx#:[id number] Oral 960 Other: Voiding Method Toilet - Exam Review of Systems Constitutional: Denies anorexia, Denies chills, Denies fatigue, Denies fever, Denies lethargy, Denies malaise, Denies poor appetite, Denies weakness, Denies weight loss Eyes: denies blurred vision, denies pain, denies loss of vision Ears, nose, mouth and throat: Denies dysphagia, Denies headache, Denies nasal congestion, Denies nasal discharge, Denies sore throat, Denies vertigo Cardiovascular: Denies chest pain, Denies decreased exercise tolerance, Denies dyspnea on exertion, Denies leg edema, Denies lightheadedness, Denies shortness of breath, Denies syncope Respiratory: Denies cough, Denies cough with sputum, Denies dyspnea, Denies excessive sputum, Denies hemoptysis, Denies home oxygen, Denies respiratory infections, Denies sleep apnea, Denies wheezing Gastrointestinal: Denies abdominal pain, Denies constipation, Denies diarrhea, Denies loss of appetite, Denies nausea, Denies vomiting Genitourinary: Denies dysuria, Denies hematuria, Denies urgency, Denies urinary frequency Musculoskeletal: Denies frequent falls, Denies gait dysfunction, Denies muscle weakness, Denies myalgias Integumentary: Reports wounds, Denies pruritus, Denies rash Neurological: Denies change in mentation, Denies change in speech, Denies conf usion, Denies numbness, Denies seizures, Denies weakness Psychiatric: Denies anxiety, Denies depression Endocrine: Denies fatigue, Denies weight, reports abnormal blood sugars Physical examination Gen: This is a 50-year-old morbidly obese female. Patient is ambulatory in her room and in no acute distress. HEENT: Head is atraumatic, normocephalic. Pupils equal, round. Sclerae is anicteric. NECK: Supple. No JVD. No lymphadenopathy. No thyromegaly. LUNGS: Clear to auscultation. No wheezes or rhonchi. No intercostal retractions. HEART: Regular rate and rhythm. No murmur. ABDOMEN: Soft. Bowel sounds are present. No masses. No tenderness. EXTREMITIES: No pedal edema. No calf tenderness. Dorsalis pedis +2 bilaterally. Patient has left heel ulceration with necrotic tissue. Foul odor with purulent drainage. NEUROLOGICAL: Patient is awake, alert and oriented x3. Cranial nerves 2 through 12 are grossly intact. - Labs CBC & Chem 7: 03/12/20 19:29 03/12/20 19:29 Labs: Abnormal Lab Results - Last 24 Hours (Table) 03/13/20 03/13/20 03/13/20 Range/Units 08:35 12:10 17:06 POC Glucose (mg/dL) 278 H 209 H (75-99) mg/dL Hemoglobin A1c 12.8 H (4.0-6.0) % 03/13/20 03/14/20 Range/Units 21:09 06:50 POC Glucose (mg/dL) 206 H 229 H (75-99) mg/dL Hemoglobin A1c (4.0-6.0) % Microbiology - Last 24 Hours (Table) 03/12/20 19:29 Blood Culture - Preliminary Blood No Growth after 24 hours Assessment and Plan Plan: 1. Left heel diabetic ulcer. Wound care consult appreciated. Continue Unasyn. Three-phase bone scan negative osteomyelitis. Consult with infectious disease appreciated. Blood cultures in progress. Wound culture in progress. Previous wound culture positive for MSSA and strep agalactia group B. 2. Diabetes mellitus type 2. Continue Levemir 60 units at bedtime, glipizide 10 mg 3 times daily, NovoLog increased to 6 units with meals and NovoLog scale before meals and at bedtime. Hemoglobin A1c 12.8. 3. Uncontrolled hypertension. Lisinopril increased to 10 mg twice daily. 4. Diabetes mellitus type 2 with diabetic neuropathy. Patient requires tight glucose control. 5. GI prophylaxis. Pepcid 20 mg daily. 6. DVT prophylaxis. Heparin 5000 units subcu twice daily. Discharge plan: home on Thursday. Follow-up in the wound healing Center Impression and plan of care have been directed as dictated by the signing physician. Eva Ortiz nurse practitioner acting as scribe for signing physician.
[2020-03-14 11:32] LABS: Glucose,Whole Blood 245 mg/dL (75-99)
[2020-03-14] MEDS: ACETAMINOPHEN TAB 325 MG TAB PO PRN ×2 (11:42→17:17)
[2020-03-14 16:23] LABS: Glucose,Whole Blood 228 mg/dL (75-99)
--- NOTE | 2020-03-14 16:32 | PN ---
PROGRESS NOTE DATE OF SERVICE: 03/14/2020 REASON FOR FOLLOWUP: Left heel diabetic foot ulcer with cellulitis. INTERVAL HISTORY: The patient is currently afebrile, has been breathing comfortably. Denies having any chest pain or cough. No nausea, vomiting, abdominal pain or pain to the left heel area. PHYSICAL EXAMINATION: Blood pressure is 137/77 with a pulse of 93, temperature of 98.4. She is 97% on room air. General description is a middle-aged female, lying in bed in no distress. RESPIRATORY SYSTEM: Unlabored breathing, clear to auscultation anteriorly. HEART: S1, S2. Regular rate and rhythm. ABDOMEN: Soft, no tenderness. Left heel wound. Minimal surrounding swelling. No significant redness. Minimal drainage and foul smelling. DIAGNOSTIC IMPRESSION AND PLAN: Patient with left diabetic foot infection. Bone scan was negative for osteomyelitis. Wound culture currently pending. She will continue Unasyn with discharge med depending upon the culture report. Local care to continue with Aquacel Silver packing of the wound. Continue supportive care. MMODL / IJN: [id number] /
[2020-03-14 19:45] VITALS: RESP 18
[2020-03-14 20:21] LABS: Glucose,Whole Blood 203 mg/dL (75-99)
[2020-03-15] MEDS: AMPICILLIN-SULBACTAM 3 GM in SODIUM CHLORIDE 0.9% 100 ML IVPB SCH ×2 (05:18→11:32)
[2020-03-15] MEDS: ACETAMINOPHEN TAB 325 MG TAB PO PRN (05:20)
[2020-03-15 06:59] LABS: Glucose,Whole Blood 198 mg/dL (75-99)
[2020-03-15] MEDS: INSULIN ASPART (NovoLOG) 100 UNIT/ML VIAL SQ SCH ×3 (07:14→11:31)
[2020-03-15] MEDS: FAMOTIDINE 20 MG TAB PO SCH (08:18)
[2020-03-15] MEDS: glipiZIDE 10 MG TAB PO SCH (08:18)
[2020-03-15] MEDS: LISINOPRIL 10 MG TAB PO SCH (08:19)
[2020-03-15] MEDS: HEPARIN SODIUM,PORCINE 5,000 UNIT/ML 1 ML VIAL SQ SCH (08:19)
[2020-03-15 08:20] VITALS: BP 179/109; PULSE 75; TEMP 98
[2020-03-15] MEDS ORDERED: amLODIPine 5 MG TAB PO SCH (10:30)
[2020-03-15 11:23] LABS: Glucose,Whole Blood 220 mg/dL (75-99)
[2020-03-15] MEDS ORDERED: LISINOPRIL 10 MG TAB PO STA (11:26)
--- NOTE | 2020-03-15 11:27 | P.DS ---
Providers Date of admission: 03/12/20 19:59 Expected date of discharge: 03/15/20 Attending physician: Carson Murcia Consults: 03/12/20 20:23 Consult Physician Routine Consulting Provider: Santos Basurto Consult Reason/Comments: Left heel wound Do you want consulting provider notified?: Yes Primary care physician: [facility] Course: This is a 50-year-old female patient of Dr. Mora with past medical history of diabetes mellitus type 2, insulin requiring diagnosed in 2007, diabetic neuropathy, hyperlipidemia, gastroesophageal reflux disease, history of uterine cancer status post hysterectomy, chemotherapy and radiation therapy, hiatal hernia status post recent fundoplication in 2016. Patient states she has had a wound to her left heel for a couple months. She states it started as a dry area and she peeled the skin off. She has been seeing Dr. Mora for this and has been treated with Cipro. Patient was concerned that the wound has worsened with foul order and drainage. Patient came into [facility] emergency center for evaluation. Patient was found to be afebrile, heart rate 80, blood pressure 172/85, pulse ox 97% on room air, CBC unremarkable, sodium 134, potassium 4.3, chloride 96, CO2 29, BUN 17 and creatinine 0.94, blood sugar 492. Liver function tests were within normal limits. X-ray of the left foot revealed fracture base proximal phalanx fifth digit. Soft tissue edema with no destructive osseous changes involving the heel to suggest osteomyelitis. Soft tissue ulceration suspected along the plantar surface adjacent calcaneus. Correlate for cellulitis. Patient has been admitted to the [facility] floor and consult in place with infectious disease and wound care team. Patient was started on antibiotics in form of Unasyn and bone scans been ordered. Outpatient wound culture from February 20 is positive for MSSA and strep agalactiae group B. 03/14: Patient has been seen by Dr. Basurto with recommendations to continue Unasyn. Patient has been seen by Wound Care Team with recommendations for absorptive silver, saline moistened gauze, dry gauze and rolled gauze and secure with paper tape. Change Thursday. Patient will benefit from wound debridement which can be done in the outpatient setting in the wound care clinic. Bone scan reveals intense flow in portal activity along the medial left heel suggestive soft tissue injury infection. No corresponding delayed activity to clearly indicate osteomyelitis. Patient has been afebrile, heart rate 73, blood pressure 137/77, pulse ox 96% on room air. A1C 12.8 and CBG running in the 200s. Scheduled NovoLog increased to [address] safety engineer will be added. Patient does have a glucometer at home. Blood culture shows no growth at 24 hours and wound culture in progress. 03/15: Wound culture finalized with normal skin pierce. Dr. Basurto is recommended Augmentin for 2 week course. Wound care with Aquacel Ag. Blood sugars are running 198-228. Blood pressures continued to be quite elevated despite adding in increasing antihypertensive. Patient's been afebrile, heart rate 75, blood pressure this morning 171/109, pulse ox 96% on room air. We are increasing the Levemir 75 units at bedtime and increasing NovoLog scheduled to 10 units with meals along with scale for home. Lisinopril increased to 20 mg twice daily and amlodipine 5 mg daily added. Patient will be discharged home today in stable condition. Discharge diagnoses: 1. Left heel diabetic ulcer. Wound care consult appreciated. 2. Diabetes mellitus type 2. Uncontrolled with hyperglycemia, A1c 12.8. 3. Uncontrolled hypertension. 4. Diabetes mellitus type 2 with diabetic neuropathy. Discharge plan: home. Follow-up in the [facility]aling [facility] Impression and plan of care have been directed as dictated by the signing physician. Eva Ortiz nurse practitioner acting as scribe for signing physic janae. Patient Condition at Discharge: Good Plan - Discharge Summary New Discharge Prescriptions: New Amoxic-Pot Clav 875-125Mg [Augmentin 875-125] 1 tab PO Q12HR 14 Days #28 tab amLODIPine [Norvasc] 5 mg PO DAILY #30 tab INSULIN ASPART (NovoLOG) [NovoLOG (formulary)] 0 unit SQ ACHS vial Insulin Aspart [NovoLOG Flexpen] 10 units SQ AC-TID #5 pen Lisinopril 20 mg PO BID #60 tab Continue glipiZIDE [Glucotrol] 10 mg PO TID Changed Insulin Glargine [Lantus] 75 unit SQ HS #1 vial Discharge Medication List glipiZIDE [Glucotrol] 10 mg PO TID 03/12/20 [History] Amoxic-Pot Clav 875-125Mg [Augmentin 875-125] 1 tab PO Q12HR 14 Days #28 tab 03/15/20 [Rx] INSULIN ASPART (NovoLOG) [NovoLOG (formulary)] 0 unit SQ ACHS vial 03/15/20 [Rx] Insulin Aspart [NovoLOG Flexpen] 10 units SQ AC-TID #5 pen 03/15/20 [Rx] Insulin Glargine [Lantus] 75 unit SQ HS #1 vial 03/15/20 [Rx] Lisinopril 20 mg PO BID #60 tab 03/15/20 [Rx] amLODIPine [Norvasc] 5 mg PO DAILY #30 tab 03/15/20 [Rx] Follow up Appointment(s)/Referral(s): [facility]ound Healing[facility]Center [NON-STAFF] - 1 Week (Wound care clinic will call you to schedule your first appointment.) Tevin Mora DO [Primary Care Provider] - 1-2 days (Dr. Reinoso office will call you with an appointment time.) Patient Instructions/Handouts: Foot Care for People with Diabetes (DC), Diabetic Foot Ulcers (DC), Diabetes and Your Skin (DC) Activity/Diet/Wound Care/Special Instructions: Novolog scale provided on patient medication discharge sheet. Discharge Disposition: HOME SELF-CARE
[2020-03-15] MEDS ORDERED: INSULIN ASPART (NovoLOG) 100 UNIT/ML VIAL SQ SCH (12:30)
--- NOTE | 2020-03-15 13:53 | PN ---
PROGRESS NOTE DATE OF SERVICE: 03/15/2020 REASON FOR FOLLOWUP: Left diabetic foot infection. INTERVAL HISTORY: The patient is currently afebrile. The patient is breathing comfortably. The patient denies having any chest pain. No shortness of breath or cough. No nausea, vomiting or abdominal pain and anxious to go home. PHYSICAL EXAMINATION: Blood pressure is 179/100 with a pulse of 75, temperature of 98. She is 96% on room air. General description is a middle-aged female up in the bed in no distress. RESPIRATORY SYSTEM: Unlabored breathing, clear to auscultation anteriorly. HEART: S1, S2. Regular rate and rhythm. ABDOMEN: Soft, no tenderness. Left heel is currently dressed up. LABS: Wound is usual skin pierce. Bone scan was negative. DIAGNOSTIC IMPRESSION AND PLAN: Patient with left diabetic foot wound with secondary cellulitis. Culture has been skin pierce. Antibiotic was switched over to Augmentin 875 b.i.d. for 2 weeks. Local care with Aquacel silver packing and off load has been discussed in detail with the patient. MMODL / IJN: [id number] /
[2020-03-15] MEDS ORDERED: INSULIN DETEMIR (LEVEMIR) 100 UNIT/ML SYR SQ SCH (21:00)
[2020-03-15] MEDS ORDERED: LISINOPRIL 20 MG TAB PO SCH (21:00)
== END 2020-03-15 13:54 | disposition home or self-care (01) | DRG 638 ==
LOC: EC 18:06 → 6NMEDSUR 19:59 → 4SSUR 03-13 17:31
PROVIDERS: ADMIT Internal Medicine Geriatric Medicine; ATTEND Internal Medicine Geriatric Medicine
DX: E11.621 Type 2 diabetes mellitus with foot ulcer (principal); L97.425 Non-pressure chronic ulcer of left heel and midfoot with muscle involvement without evidence of necrosis; L03.116 Cellulitis of left lower limb; E11.65 Type 2 diabetes mellitus with hyperglycemia; Z79.4 Long term (current) use of insulin; E11.42 Type 2 diabetes mellitus with diabetic polyneuropathy; E11.628 Type 2 diabetes mellitus with other skin complications; E78.5 Hyperlipidemia, unspecified; F41.9 Anxiety disorder, unspecified; I10 Essential (primary) hypertension; Z80.8 Family history of malignant neoplasm of other organs or systems; Z82.49 Family history of ischemic heart disease and other diseases of the circulatory system; Z83.3 Family history of diabetes mellitus; Z85.42 Personal history of malignant neoplasm of other parts of uterus; Z86.14 Personal history of Methicillin resistant Staphylococcus aureus infection; Z90.710 Acquired absence of both cervix and uterus; K21.9 Gastro-esophageal reflux disease without esophagitis; Z88.5 Allergy status to narcotic agent; Z88.2 Allergy status to sulfonamides
CPT/HCPCS: 36415; 78315; 80053; 83036; 85025; 87040; 87070; 87205; 96361; 96365; 96375; 99284

== ENCOUNTER → 2020-05-05 | Outpatient (CLI) | payer MEDICARE, OTHER ==
--- NOTE | 2020-05-07 09:04 | MR ---
EXAMINATION TYPE: MR foot LT wo/w con DATE OF EXAM: 05/05/2020 COMPARISON: Bone scan 03/13/2020, x-ray 03/12/2020 HISTORY: Open wound left plantar foot CONTRAST: Standard multiplanar, multisequence MRI departmental protocol utilizing 11.5 mL intravenous Gadavist gadolinium contrast. FINDINGS: There is skin thickening and diffuse soft tissue edema. There appears to be enhancement of numerous m uscles of the feet which could be on the basis of myositis although fasciitis next noted. There is a localized area of fluid seen between the first and second distal metatarsals measuring approximately 1.7 x 0.8 cm which could represent a small abscess. There is abnormal signal within the marrow of the cuboid and cuneiform bones with subsequent enhancem ent on postcontrast imaging. Findings compatible with nonspecific marrow edema and are compatible wit h the bone scan. Could been the basis of chronic stress injury or infectious etiology including osteo myelitis. Fluid signal surrounding the Peroneus brevis and longus tendons compatible Rebeca synovitis. Artifact l imits assessment of the ligamentous structures. Arthropathy of the tarsometatarsal junction suspected . IMPRESSION: 1. Severe diffuse subcutaneous edema with skin thickening. Findings are highly suggestive of severe c ellulitis. There is enhancement of some of the muscles of the feet which could been the basis of myos itis although fasciitis would not be excluded and should be correlated clinically. 2. Abnormal marrow signal involving the cuboid bone and cuneiform bones compatible with nonspecific m arrow edema correlate for osteomyelitis otherwise consider stress-induced injury. 3. Between the distal first and second metatarsals there is a 1.7 x 0.8 cm fluid collection small phl egmon or abscess in the differential diagnosis measuring 1.7 x 0.8 cm.
== END | disposition home or self-care (01) ==
LOC: RADMRIMAIN 14:01
PROVIDERS: ATTEND Thoracic Surgery (Cardiothoracic Vascular Surgery)
DX: E08.621 Diabetes mellitus due to underlying condition with foot ulcer (principal); L02.612 Cutaneous abscess of left foot; E66.01 Morbid (severe) obesity due to excess calories; R23.4 Changes in skin texture
CPT/HCPCS: 73720; A9585

== ENCOUNTER → 2021-07-19 | Outpatient (CLI) | payer MEDICARE, OTHER ==
--- NOTE | 2021-07-21 22:21 | CT ---
EXAMINATION TYPE: CT abdomen pelvis wo/w con DATE OF EXAM: 07/19/2021 COMPARISON: 12/08/2017 HISTORY: 51-year-old female generalized pain, history of uterine CA TECHNIQUE: Contiguous axial scanning of the abdomen and pelvis before and after administration of 100 ml Isovue 300 IV contrast. Delayed images through the kidneys and coronal/sagittal reconstructions performed. CT DLP: 3640.1 mGycm Automated exposure control for dose reduction was used. FINDINGS: Heart normal size without pericardial effusion. Lung bases clear without pleural effusion. There is mild circumferential wall thickening distal esophagus. Postsurgical changes of Ovidio fundop lication. Liver enlarged at 21.1 cm there is no significant fatty infiltration of the noncontrast images. No fo bebeto liver lesion or biliary ductal dilatation. Portal venous system is patent. Gallbladder, adrenal glands, kidneys, spleen, and pancreas within normal limits. No dilated small bowel, free fluid, or free air. Mildly enlarged 9 mm upper left retroperitoneal lymph node remains unchanged from 2018, likely chroni c reactive/post inflammatory. Otherwise, no mesenteric or retroperitoneal lymphadenopathy. Oral contrast progressed to the splenic flexure of the colon. Mild overall stool burden. No pericolic inflammatory change. Bladder not distended. Uterus surgically absent. Pelvic phleboliths. Neither ovary clearly seen. Pelv ic floor relaxation. Bones: There is new prevertebral/paravertebral fat stranding about the L3-L4 level. Overall disc heig ht appears maintained. Refer to axial image 51 and sagittal image 71. Endplates are maintained. IMPRESSION: 1. NEW MILD PREVERTEBRAL/PARAVERTEBRAL FAT STRANDING AT THE L3-L4 LEVEL WITHOUT ANY SUSPICIOUS ENDPLA TE CHANGES APPRECIATED. CORRELATE WITH ESR/CRP AND CONTRAST ENHANCED LUMBAR SPINE MRI TO EXCLUDE ANY EARLY INFECTIOUS PROCESS SUCH DISCITIS. OTHER INFLAMMATORY PROCESSES SUCH EARLY RETROPERITONEAL FIBROSIS OR INTRAMEDULLARY HEMATOPOIESIS ARE DIFFERENTIAL CONSIDERATIONS. 2. STATUS POST HYSTERECTOMY AND BILATERAL NEPHRECTOMIES. PELVIC FLOOR RELAXATION. 3. STATUS POST OVIDIO FUNDOPLICATION. THERE IS MILD CIRCUMFERENTIAL WALL THICKENING AT THE DISTAL ESO PHAGUS. CORRELATE TO EXCLUDE ESOPHAGITIS.
== END | disposition home or self-care (01) ==
LOC: RADCTMAIN 10:47
PROVIDERS: ATTEND Family Medicine
DX: K22.8 Other specified diseases of esophagus (principal); Z85.42 Personal history of malignant neoplasm of other parts of uterus
CPT/HCPCS: 82565; 84520; 74178; 36415; Q9967